=== PATIENT | male | born 1975 | race Caucasian/White ===

== ENCOUNTER 2018-01-28 18:58 | Emergency (ER) | payer BC ==
[~2018-01-28] VITALS: Ht 190.5 cm; Wt 106.8 kg
[~2018-01-28 18:58] MED LIST: ALUPENT IH; NO HOME MEDICATIONS
[2018-01-28 19:00] VITALS: BP 140/83; TEMP 97.8
[2018-01-28] MEDS ORDERED: PERCOCET 325 MG1 TA2 PO (21:44)
[2018-01-28] MEDS ORDERED: CLEOCIN HC150 MG/CAP PO (21:56)
[2018-01-28] MEDS ORDERED: ZOFRAN ODT4 MG PO (22:15)
[2018-01-28 22:25] VITALS: PULSE 80
== END 2018-01-28 22:45 | disposition home or self-care (01) ==
LOC: COL.ER 18:58
DX: S02.2XXA Fracture of nasal bones, initial encounter for closed fracture (principal); W22.8XXA Striking against or struck by other objects, initial encounter
CPT/HCPCS: J2405; J3010